=== PATIENT | male | born 1960 | race Caucasian/White ===

== ENCOUNTER 2019-05-05 05:45 | Outpatient (CLI) | payer BC ==
[~2019-05-05] VITALS: Ht 175 cm; Wt 118.0 kg
[2019-05-05] MEDS ORDERED: DAPA5TAB PO (13:56)
== END 2019-05-06 09:07 | disposition home or self-care (01) ==
LOC: PREOP 05:45
PROVIDERS: ATTEND Internal Medicine
DX: Z01.818 Encounter for other preprocedural examination (principal)